=== PATIENT | female | born 1995 | race African-American/Black ===

== ENCOUNTER 2021-02-02 17:44 | Emergency (ER) | payer MEDICAID ==
[~2021-02-02] VITALS: Ht 157.5 cm; Wt 50.0 kg
[2021-02-02 17:47] VITALS: BP 128/78
[2021-02-02] MEDS ORDERED: HYDROCODONE/ACETAMINOPHEN 5/325MG TABLET PO STA (18:24)
== END 2021-02-02 20:12 | disposition home or self-care (01) ==
LOC: ER 17:44
DX: S09.90XA Unspecified injury of head, initial encounter (principal); R07.89 Other chest pain; Y04.0XXA Assault by unarmed brawl or fight, initial encounter; Y93.89 Activity, other specified; Y92.89 Other specified places as the place of occurrence of the external cause; Y99.8 Other external cause status
CPT/HCPCS: 71045; 81025; 99284

== ENCOUNTER 2022-07-14 00:38 | Emergency (ER) | payer MEDICAID ==
[~2022-07-14] VITALS: Ht 157.5 cm; Wt 42.7 kg
[2022-07-14 00:53] VITALS: BP 126/93
[2022-07-14 02:32] LABS: CLARITY URINE CLEAR (CLEAR); COLOR URINE DARK YELLOW (YELLOW); KETONES URINE 1+ (NEGATIVE); LEUKOCYTE ESTERASE URINE 1+ (NEGATIVE); NITRITE URINE NEGATIVE (NEGATIVE); OCCULT BLOOD URINE NEGATIVE (NEGATIVE); PROTEIN URINE 1+ (NEGATIVE); SPECIFIC GRAVITY URINE 1.034 (1.005-1.030)
[2022-07-14] MEDS ORDERED: METR-167 PO (04:47)
== END 2022-07-14 05:00 | disposition home or self-care (01) ==
LOC: ER 00:44
DX: T19.2XXA Foreign body in vulva and vagina, initial encounter (principal); X58.XXXA Exposure to other specified factors, initial encounter; Y93.9 Activity, unspecified; Y92.89 Other specified places as the place of occurrence of the external cause; Y99.8 Other external cause status
CPT/HCPCS: 81003; 81025; 99283; Z7610

== ENCOUNTER 2023-09-04 03:35 | Inpatient (IN) | payer MEDICAID ==
[~2023-09-04] VITALS: Ht 304.8 cm; Wt 41.7 kg
[~2023-09-04 03:35] MED LIST: METR-167 PO
[2023-09-04 03:38] VITALS: O2SAT 98
[2023-09-04] MEDS: ACETAMINOPHEN 325MG TABLET PO PRN ×2 (05:34→16:34)
[2023-09-04] MEDS: ONDANSETRON HCL 4MG/2ML INJ IV ONE (05:34)
[2023-09-04] MEDS: SODIUM CHLORIDE 0.9% 1,000 ML IV ONE (05:34)
[2023-09-04 05:50] LABS: BASOPHILS % 0.2 % (0.0-2.0); EOSINOPHILS % 0.1 % (0.0-5.0); HEMATOCRIT. 30.1 % (36.0-48.0); HEMOGLOBIN. 10.4 g/dL (12.0-16.0); LYMPHOCYTES % 9.9 % (20.0-50.0); MEAN CORPUSCULAR HEMOGLOBIN 33.2 pg (28.0-32.0); MEAN CORPUSCULAR HGB CONC 34.5 g/dL (31.0-37.0); MEAN CORPUSCULAR VOLUME 96.2 fL (81.0-99.0); MEAN PLATELET VOLUME 8.4 fl (7.4-10.4); MONOCYTES % 6.4 % (2.0-8.0); NEUTROPHILS % 83.4 % (40.0-76.0); PLATELET 213 x1000/uL (130-400); RED BLOOD CELL COUNT 3.13 mill/uL (4.2-5.4); RED CELL DISTRIBUTION WIDTH 13.9 % (11.6-14.6); WHITE BLOOD COUNT 9.5 x1000/uL (4.5-11.0)
[2023-09-04 06:17] LABS: ALANINE AMINOTRANSFERASE 9 IU/L (10-49); ALBUMIN 3.9 g/dL (3.2-4.8); ASPARTATE AMINOTRANSFERASE 18 IU/L (<34); B-HCG QUANTITATIVE 18163 mIU/mL (<3); BILIRUBIN TOTAL 0.7 mg/dL (0.1-1.0); CALCIUM 8.5 mg/dL (8.7-10.4); CARBON DIOXIDE 21 mEq/L (21-32); CHLORIDE 103 mEq/L (98-107); CREATININE 0.5 mg/dL (0.6-1.0); GLUCOSE 101 mg/dL (70-105); PROTEIN TOTAL 6.7 g/dL (6.0-8.3); SODIUM 134 mEq/L (136-145); UREA NITROGEN BLOOD 6 mg/dL (9-23)
[2023-09-04] MEDS: ACETAMINOPHEN 325MG TABLET PO ONE (07:10)
[2023-09-04] MEDS: POTASSIUM CHLORIDE 20MEQ/PACKET PO ONE (07:13)
[2023-09-04] MEDS: SODIUM CHLORIDE 0.9% 1000ML BAG (SEPSIS BOLUS) IV ONE (09:56)
[2023-09-04] MEDS: ONDANSETRON HCL 4MG/2ML INJ ONE (11:33)
[2023-09-04 13:15] LABS: CLARITY URINE CLEAR (CLEAR); COLOR URINE DARK YELLOW (YELLOW); GLUCOSE URINE NEGATIVE (NEGATIVE); KETONES URINE 4+ (NEGATIVE); LEUKOCYTE ESTERASE URINE TRACE (NEGATIVE); NITRITE URINE NEGATIVE (NEGATIVE); OCCULT BLOOD URINE NEGATIVE (NEGATIVE); PH URINE 6.5 (4.5-8.0); PROTEIN URINE 1+ (NEGATIVE); SPECIFIC GRAVITY URINE 1.036 (1.005-1.030)
[2023-09-04 13:45] LABS: BACTERIA URINE 1+; RBC URINE 0-2 /hpf (0-2); SQUAMOUS EPITHELIAL CELL URINE 2+ /lpf (RARE/1+); YEAST URINE NONE SEEN
[2023-09-04] MEDS: DEXT 5%/0.9% NACL 1,000 ML IV SCH (14:15)
[2023-09-04] MEDS ORDERED: METOCLOPRAMIDE HCL 10MG/2ML VIAL IV PRN (14:15)
[2023-09-04] MEDS: METOCLOPRAMIDE HCL 10MG/2ML VIAL IV PRN (16:34)
[2023-09-04] MEDS: DEXT 5%/LACTATED RINGERS 1,000 ML IV SCH (18:45)
[2023-09-04 19:10] VITALS: BP 110/78; PULSE 82; RESP 20; TEMP 97.2
[2023-09-04] MEDS: ACETAMINOPHEN WITH CODEINE 300/30MG TABLET PO NR (21:09)
[2023-09-04] MEDS: POTASSIUM CHLORIDE 20MEQ TABLET SR PO NR (21:18)
[2023-09-04] MEDS: ONDANSETRON HCL 4MG/2ML INJ IV SCH (21:18)
[2023-09-05] VITALS: BP 86/52; PULSE 62; RESP 18; TEMP 97.5
[2023-09-05 00:48] LABS: TROPONIN I HIGH SENSITIVITY < 4 ng/L (3.0-34)
[2023-09-05] MEDS ORDERED: ACETAMINOPHEN 650MG/20.3ML UDC PO PRN (03:15)
[2023-09-05] MEDS: ACETAMINOPHEN 325MG TABLET PO PRN (03:26)
[2023-09-05 04:00] VITALS: BP 130/68; PULSE 57; RESP 20; TEMP 97.5
[2023-09-05 07:29] LABS: BASOPHILS % 0.4 % (0.0-2.0); EOSINOPHILS % 0.2 % (0.0-5.0); HEMATOCRIT. 26.8 % (36.0-48.0); HEMOGLOBIN. 9.2 g/dL (12.0-16.0); LYMPHOCYTES % 21.5 % (20.0-50.0); MEAN CORPUSCULAR HEMOGLOBIN 32.1 pg (28.0-32.0); MEAN CORPUSCULAR HGB CONC 34.2 g/dL (31.0-37.0); MEAN CORPUSCULAR VOLUME 93.9 fL (81.0-99.0); MEAN PLATELET VOLUME 8.9 fl (7.4-10.4); MONOCYTES % 11.5 % (2.0-8.0); NEUTROPHILS % 66.4 % (40.0-76.0); PLATELET 176 x1000/uL (130-400); RED BLOOD CELL COUNT 2.85 mill/uL (4.2-5.4); RED CELL DISTRIBUTION WIDTH 13.8 % (11.6-14.6); WHITE BLOOD COUNT 6.6 x1000/uL (4.5-11.0)
[2023-09-05 07:47] LABS: ALANINE AMINOTRANSFERASE 12 IU/L (10-49); ALBUMIN 3.5 g/dL (3.2-4.8); ASPARTATE AMINOTRANSFERASE 17 IU/L (<34); BILIRUBIN TOTAL 0.8 mg/dL (0.1-1.0); CARBON DIOXIDE 21 mEq/L (21-32); CHLORIDE 105 mEq/L (98-107); CREATININE 0.4 mg/dL (0.6-1.0); GLUCOSE 80 mg/dL (70-105); POTASSIUM 3.2 mEq/L (3.5-5.1); PROTEIN TOTAL 5.9 g/dL (6.0-8.3); SODIUM 135 mEq/L (136-145); T4 FREE 1.18 ng/dL (0.89-1.76); THYROID STIMULATING HORMONE 0.63 uIU/mL (0.55-4.78)
[2023-09-05 08:00] VITALS: BP 105/69; PULSE 59; RESP 20; TEMP 97.2
[2023-09-05 08:09] LABS: UREA NITROGEN BLOOD < 5 mg/dL (9-23)
[2023-09-05] MEDS: PRENATAL VIT/FE FUMARATE/FA TABLET PO SCH (08:33)
[2023-09-05 08:39] LABS: TROPONIN I HIGH SENSITIVITY < 4 ng/L (3.0-34)
[2023-09-05 12:00] VITALS: BP 97/60; PULSE 64; RESP 20; TEMP 98.1
[2023-09-05] MEDS: POTASSIUM CHLORIDE 20MEQ TABLET SR PO NR (12:23)
[2023-09-05] MEDS: ACETAMINOPHEN 325MG TABLET PO NR (13:45)
[2023-09-05] MEDS: MAGNESIUM OXIDE 400MG TABLET PO SCH (13:58)
[2023-09-05 16:00] VITALS: BP 108/62; PULSE 62; RESP 20; TEMP 97.4
[2023-09-05] MEDS: SUCRALFATE 1G TABLET PO SCH (17:37)
[2023-09-05 20:06] LABS: HEPATITIS A AB IGM NEGATIVE (Negative); HEPATITIS B CORE AB IGM NEGATIVE (Negative); HEPATITIS B SURFACE ANTIGEN NEGATIVE (Negative); HEPATITIS C AB NON REACTIVE (Neg) (Negative)
[2023-09-05 20:57] VITALS: BP 98/55; PULSE 61; RESP 19; TEMP 97.8
[2023-09-06 00:11] VITALS: BP 92/59; PULSE 61; RESP 16; TEMP 97.5
[2023-09-06] MEDS: ACETAMINOPHEN 325MG TABLET PO NR (01:46)
[2023-09-06 04:00] VITALS: BP 100/59; PULSE 66; RESP 16; TEMP 97.5
[2023-09-06 06:29] LABS: BASOPHILS % 0.3 % (0.0-2.0); EOSINOPHILS % 0.4 % (0.0-5.0); HEMATOCRIT. 24.5 % (36.0-48.0); HEMOGLOBIN. 8.3 g/dL (12.0-16.0); LYMPHOCYTES % 34.5 % (20.0-50.0); MEAN CORPUSCULAR HEMOGLOBIN 32.7 pg (28.0-32.0); MEAN CORPUSCULAR HGB CONC 34.1 g/dL (31.0-37.0); MEAN CORPUSCULAR VOLUME 95.9 fL (81.0-99.0); MEAN PLATELET VOLUME 8.2 fl (7.4-10.4); NEUTROPHILS % 55.8 % (40.0-76.0); PLATELET 158 x1000/uL (130-400); RED BLOOD CELL COUNT 2.55 mill/uL (4.2-5.4); RED CELL DISTRIBUTION WIDTH 13.9 % (11.6-14.6)
[2023-09-06 07:12] LABS: CALCIUM 7.7 mg/dL (8.7-10.4); CARBON DIOXIDE 20 mEq/L (21-32); CHLORIDE 107 mEq/L (98-107); CREATININE 0.4 mg/dL (0.6-1.0); GLUCOSE 80 mg/dL (70-105); POTASSIUM 3.5 mEq/L (3.5-5.1); SODIUM 133 mEq/L (136-145); UREA NITROGEN BLOOD < 5 mg/dL (9-23)
== END 2023-09-06 08:20 | disposition left against medical advice (07) | DRG 566 ==
LOC: ER 03:35 → EDUNIT# 03:35 → EDBEDREQTM 10:51 → EDBEDREQ 10:51 → 5WST 12:57 → EDBEDREQ 12:57 → 7WST 16:14
PROVIDERS: ADMIT Internal Medicine; ATTEND Internal Medicine
DX: O21.1 Hyperemesis gravidarum with metabolic disturbance (principal); I95.9 Hypotension, unspecified; O99.322 Drug use complicating pregnancy, second trimester; Z53.29 Procedure and treatment not carried out because of patient's decision for other reasons; F12.90 Cannabis use, unspecified, uncomplicated; O99.282 Endocrine, nutritional and metabolic diseases complicating pregnancy, second trimester; E83.42 Hypomagnesemia; Z3A.18 18 weeks gestation of pregnancy; Z59.01 Sheltered homelessness
CPT/HCPCS: 36415; 71045; 76705; 76805; 76857; 80048; 80053; 81003; 83605; 83735; 84145; 84439; 84443; 84484; 84702; 85025; 86705; 86709; 86850; 86900; 87340; 93005; 99285; J2405; J2765; J7030; J7121